=== PATIENT | male | born 1950 | race Caucasian/White ===

== ENCOUNTER 2018-12-18 07:48 | Outpatient (REF) | payer MEDICARE, OTHER, SELFPAY ==
[2018-12-18 22:26] LABS: Anion Gap 8.6 mmol/L (3-11); BUN 18 mg/dL (7-18); CO2 29.4 mmol/L (21.0-32.0); CREATININE 0.85 mg/dL (0.70-1.30); Calcium 8.9 mg/dL (8.5-10.1); Calculated LDL 146; Chloride 105 mmol/L (98-107); Cholesterol 215 mg/dL (50-200); Glucose 110 mg/dL (70-100); HDL Cholesterol 45 mg/dL (40-60); Potassium 5.1 mmol/L (3.5-5.1); Sodium 143 mmol/L (136-145); Triglyceride 121 mg/dL (30-150)
[2018-12-21 10:52] LABS: PSA, Screening 0.3 ng/ml (0-6.5)
== END 2018-12-18 08:08 ==
LOC: NCHCN 07:48
PROVIDERS: PCP Internal Medicine; Visit Provider Internal Medicine
DX: R03.0 Elevated blood-pressure reading, without diagnosis of hypertension (principal); R56.9 Unspecified convulsions; N39.9 Disorder of urinary system, unspecified; E66.9 Obesity, unspecified
CPT/HCPCS: 80048; 80061; 83721; 84153

== ENCOUNTER 2019-01-15 09:47 | Outpatient (REF) | payer MEDICARE, OTHER, SELFPAY ==
[2019-01-15 22:31] LABS: Anion Gap 8.7 mmol/L (3-11); BUN 17 mg/dL (7-18); CO2 26.3 mmol/L (21.0-32.0); CREATININE 0.71 mg/dL (0.70-1.30); Calcium 8.7 mg/dL (8.5-10.1); Calculated LDL 114 mg/dL; Chloride 105 mmol/L (98-107); Cholesterol 170 mg/dL (50-200); Glucose 102 mg/dL (70-100); HDL Cholesterol 37 mg/dL (40-60); Potassium 4.5 mmol/L (3.5-5.1); Sodium 140 mmol/L (136-145); Triglyceride 98 mg/dL (30-150)
== END 2019-01-15 10:07 ==
LOC: NCHCN 09:47
PROVIDERS: PCP Internal Medicine; Visit Provider Internal Medicine
DX: H16.009 Unspecified corneal ulcer, unspecified eye (principal); E66.9 Obesity, unspecified; R03.0 Elevated blood-pressure reading, without diagnosis of hypertension; N39.9 Disorder of urinary system, unspecified; R56.9 Unspecified convulsions
CPT/HCPCS: 80048; 80061; 83721

== ENCOUNTER 2019-11-11 09:13 | Outpatient (REF) | payer MEDICARE, OTHER, SELFPAY ==
[2019-11-11 20:21] LABS: PHENYTOIN (DILANTIN) 9.8 ug/mL (10.0-20.0)
[2019-11-11 20:32] LABS: TSH (W/Ref FT4) 1.91 uIU/mL (0.36-3.74)
[2019-11-11 20:49] LABS: Vitamin D 25 Total 39.8 ng/ml (30-100)
[2019-11-15 10:52] LABS: PSA, Diagnostic 0.3 ng/mL (0.0-6.5)
== END 2019-11-11 09:33 ==
LOC: NCHCN 09:13
PROVIDERS: PCP Internal Medicine; Visit Provider Internal Medicine
DX: E55.9 Vitamin D deficiency, unspecified (principal); C61 Malignant neoplasm of prostate; R56.9 Unspecified convulsions; R68.89 Other general symptoms and signs; Z51.81 Encounter for therapeutic drug level monitoring
CPT/HCPCS: 82306; 80185; 84153; 84443

== ENCOUNTER 2020-10-11 07:36 | Outpatient (REF) | payer MEDICARE, OTHER, SELFPAY ==
[2020-10-11 13:37] LABS: ALT 57 U/L (16-63); AST 28 U/L (15-37); Albumin 3.8 g/dL (3.4-5.0); Alkaline Phosphatase 64 U/L (46-116); Anion Gap 8.7 mmol/L (3-11); BUN 22 mg/dL (7-18); Bilirubin, Total 0.6 mg/dL (0.2-1.0); CO2 27.3 mmol/L (21.0-32.0); Calcium 9.2 mg/dL (8.5-10.1); Calculated LDL 101 mg/dL (<100); Chloride 102 mmol/L (98-107); Cholesterol 150 mg/dL (<200); Glucose 93 mg/dL (74-106); HDL Cholesterol 39 mg/dL (40-60); Potassium 4.7 mmol/L (3.5-5.1); Sodium 138 mmol/L (136-145); Total Protein 7.2 g/dL (6.4-8.2); Triglyceride 50 mg/dL (<150)
== END 2020-10-11 07:37 | disposition home or self-care (01) ==
LOC: NCHCN 07:36
PROVIDERS: PCP Internal Medicine; Visit Provider Internal Medicine
DX: I10 Essential (primary) hypertension (principal); Z13.220 Encounter for screening for lipoid disorders; Z86.79 Personal history of other diseases of the circulatory system; E66.9 Obesity, unspecified
CPT/HCPCS: 80053; 80061

== ENCOUNTER 2022-01-15 16:55 | Outpatient (REF) | payer MEDICARE, OTHER, SELFPAY ==
[2022-01-15 21:35] LABS: Anion Gap 8.7 mmol/L (3-11); BUN 27 mg/dL (7-18); CO2 26.3 mmol/L (21.0-32.0); CREATININE 1.1 mg/dL (0.70-1.30); Calcium 9.3 mg/dL (8.5-10.1); Chloride 102 mmol/L (98-107); Glucose 88 mg/dL (74-106); Potassium 4.6 mmol/L (3.5-5.1); Sodium 137 mmol/L (136-145)
== END 2022-01-15 16:56 | disposition home or self-care (01) ==
LOC: NCHCN 16:55
PROVIDERS: PCP Internal Medicine; Visit Provider Internal Medicine
DX: I10 Essential (primary) hypertension (principal)
CPT/HCPCS: 80048

== ENCOUNTER 2022-04-26 15:21 | Outpatient (REF) | payer MEDICARE, OTHER, SELFPAY ==
[2022-04-26 20:50] LABS: HGB 13.9 g/dL (13.5-17.5); MCH 29.8 pg (27.0-33.0); MCHC 33.1 % (32.0-36.0); MCV 90 fL (80-95); MPV 10.7 fL (8.0-11.0); Platelet Count 239 10^3/uL (130-400); RBC 4.66 10^6/uL (4.36-5.78); RDW 12.4 % (11.8-14.1); RDW-SD 40.8 fL; WBC 11.19 10^3/uL (4.4-10.8)
[2022-04-26 21:05] LABS: ALT 30 U/L (16-63); AST 21 U/L (15-37); Albumin 3.8 g/dL (3.4-5.0); Alkaline Phosphatase 78 U/L (46-116); BUN 33 mg/dL (7-18); Bilirubin, Total 0.4 mg/dL (0.2-1.0); CREATININE 1.3 mg/dL (0.70-1.30); Calcium 9.3 mg/dL (8.5-10.1); Chloride 103 mmol/L (98-107); Estimated GFR 58.01 (mL/min/1.73m2); Glucose 105 mg/dL (74-106); Potassium 4.9 mmol/L (3.5-5.1); Sodium 138 mmol/L (136-145); TSH (W/Ref FT4) 1.55 uIU/mL (0.36-3.74); Total Protein 7.2 g/dL (6.4-8.2)
== END 2022-04-26 15:22 | disposition home or self-care (01) ==
LOC: NCHCN 15:21
PROVIDERS: PCP Internal Medicine; Visit Provider Family Medicine
DX: R06.02 Shortness of breath (principal); R61 Generalized hyperhidrosis
CPT/HCPCS: 80053; 85027; 84443

== ENCOUNTER 2022-04-30 12:39 | Outpatient (REF) | payer MEDICARE, OTHER, SELFPAY ==
[2022-04-30 15:29] LABS: Anion Gap 6.1 mmol/L (3-11); BUN 29 mg/dL (7-18); CO2 27.9 mmol/L (21.0-32.0); CREATININE 1.1 mg/dL (0.70-1.30); Calcium 9.5 mg/dL (8.5-10.1); Chloride 103 mmol/L (98-107); Estimated GFR 70.88 (mL/min/1.73m2); Glucose 98 mg/dL (74-106); Sodium 137 mmol/L (136-145)
== END 2022-04-30 12:40 | disposition home or self-care (01) ==
LOC: NCHCN 12:39
PROVIDERS: PCP Internal Medicine; Visit Provider Family Medicine
DX: I10 Essential (primary) hypertension (principal); I48.91 Unspecified atrial fibrillation
CPT/HCPCS: 80048

== ENCOUNTER 2022-06-21 10:46 | Outpatient (REF) | payer MEDICARE, OTHER, SELFPAY ==
--- OUTSIDE RECORDS SUMMARY | 2022-06-21 10:51 | XMS_ITS | CCD ---
:1950 Author Care Team Providers Name Role Phone HIRAL, DEEPA Attending Physician Unavailable Vital Signs Unknown or Not Available. Allergies Allergy Code Allergy Type Reaction Status No Known Allergies 0 No known allergies Act colette Procedures Unknown or Not Available. History of Immunizations Unknown or Not Available. Problems Problem Code Start Date Resolved Date Status Seizure disorder [id number] Active Paroxysmal atrial fibrillation [id number] Active Results Unknown or Not Available. Active Medications Unknown or Not Available. Medications Administered During Visit Unknown or Not Available. 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 Discharge Instructions You were admitted to [facility] on 01/22/2021 07:47 with a principal diagnosis of Generalized idiopathic epil epsy and epileptic syndromes, not intractable, without status epilepticus You were discharged from [facility] on 01/22/2021 07:47 Should you have any questions prior to d ischarge, please contact a member of your healthcare team. If you have left the ho spital and have any questions, please contact your primary care physician. Chief Complaint and Reason For Visit Unknown or Not Available. Function Status Unknown or Not Available. Plan of Care Unknown or Not Available. Referral/Transition of Care Unknown or Not Available.
[2022-06-21 18:29] LABS: Anion Gap 6.2 mmol/L (3-11); BUN 21 mg/dL (7-18); CO2 28.8 mmol/L (21.0-32.0); Calcium 9.4 mg/dL (8.5-10.1); Chloride 102 mmol/L (98-107); Estimated GFR 79.47 (mL/min/1.73m2); Glucose 95 mg/dL (74-106); Potassium 5.3 mmol/L (3.5-5.1); Sodium 137 mmol/L (136-145)
== END 2022-06-21 10:47 | disposition home or self-care (01) ==
LOC: NCHCN 10:46
PROVIDERS: PCP Internal Medicine; Visit Provider Family Medicine
DX: I10 Essential (primary) hypertension (principal)
CPT/HCPCS: 80048

== ENCOUNTER 2022-11-12 09:53 | Outpatient (REF) | payer MEDICARE, OTHER, SELFPAY ==
[2022-11-12 15:59] LABS: ALT 39 U/L (16-63); AST 29 U/L (15-37); Albumin 3.5 g/dL (3.4-5.0); Alkaline Phosphatase 63 U/L (46-116); Anion Gap 8.7 mmol/L (3-11); BUN 19 mg/dL (7-18); Bilirubin, Total 0.6 mg/dL (0.2-1.0); CO2 26.3 mmol/L (21.0-32.0); CREATININE 1.1 mg/dL (0.70-1.30); Calcium 9.1 mg/dL (8.5-10.1); Calculated LDL 117 mg/dL (<100); Chloride 106 mmol/L (98-107); Cholesterol 177 mg/dL (<200); Estimated GFR 70.44 (mL/min/1.73m2); Glucose 99 mg/dL (74-106); HDL Cholesterol 36 mg/dL (40-60); Potassium 4.7 mmol/L (3.5-5.1); Sodium 141 mmol/L (136-145); Total Protein 7.2 g/dL (6.4-8.2); Triglyceride 121 mg/dL (<150)
[2022-11-12 22:48] LABS: PSA, Screening 0.3 ng/mL (<=6.5)
== END 2022-11-12 09:54 | disposition home or self-care (01) ==
LOC: NCHCN 09:53
PROVIDERS: PCP Internal Medicine; Visit Provider Family Medicine
DX: I48.0 Paroxysmal atrial fibrillation (principal); Z12.5 Encounter for screening for malignant neoplasm of prostate; I10 Essential (primary) hypertension
CPT/HCPCS: 80053; 80061; 84153

== ENCOUNTER 2023-08-13 13:55 | Outpatient (REF) | payer MEDICARE, OTHER, SELFPAY ==
[2023-08-13 16:29] LABS: ALT 48 U/L (16-63); AST 23 U/L (15-37); Albumin 3.8 g/dL (3.4-5.0); Alkaline Phosphatase 76 U/L (46-116); Anion Gap 10.2 mmol/L (3-11); BUN 10 mg/dL (7-18); Bilirubin, Total 0.9 mg/dL (0.2-1.0); CO2 27.8 mmol/L (21.0-32.0); Chloride 104 mmol/L (98-107); Estimated GFR 78.98 (mL/min/1.73m2); Glucose 113 mg/dL (74-106); Potassium 4.2 mmol/L (3.5-5.1); Sodium 142 mmol/L (136-145); Total Protein 7.5 g/dL (6.4-8.2)
[2023-08-15 11:58] LABS: Lamotrigine 2.4 mcg/mL (3.0-15.0)
== END 2023-08-13 13:56 | disposition home or self-care (01) ==
LOC: NCHCN 13:55
PROVIDERS: PCP Internal Medicine; Referring Provider Family Medicine; Visit Provider Family Medicine
DX: I10 Essential (primary) hypertension (principal); G40.909 Epilepsy, unspecified, not intractable, without status epilepticus; Z51.81 Encounter for therapeutic drug level monitoring; Z79.899 Other long term (current) drug therapy
CPT/HCPCS: 80053; 80175

== ENCOUNTER 2023-08-28 16:08 | Outpatient (REF) | payer MEDICARE, OTHER, SELFPAY ==
[2023-08-30 13:01] LABS: Lamotrigine 2.9 mcg/mL (3.0-15.0)
== END 2023-08-28 16:09 | disposition home or self-care (01) ==
LOC: NCHCN 16:08
PROVIDERS: PCP Internal Medicine; Referring Provider Family Medicine; Visit Provider Family Medicine
DX: G40.909 Epilepsy, unspecified, not intractable, without status epilepticus (principal)
CPT/HCPCS: 80175

== ENCOUNTER 2023-09-19 11:17 | Outpatient (REF) | payer MEDICARE, OTHER, SELFPAY ==
[2023-09-21 13:40] LABS: Lamotrigine 3.6 mcg/mL (3.0-15.0)
== END 2023-09-19 11:18 | disposition home or self-care (01) ==
LOC: NCHCN 11:17
PROVIDERS: PCP Internal Medicine; Visit Provider Family Medicine
DX: G40.909 Epilepsy, unspecified, not intractable, without status epilepticus (principal); Z51.81 Encounter for therapeutic drug level monitoring; Z79.899 Other long term (current) drug therapy
CPT/HCPCS: 80175

== ENCOUNTER 2023-10-28 14:47 | Outpatient (REF) | payer MEDICARE, OTHER, SELFPAY ==
[2023-10-29 18:22] LABS: PSA, Screening 0.4 ng/mL (<=6.5)
== END 2023-10-28 14:48 | disposition home or self-care (01) ==
LOC: NCHCN 14:47
PROVIDERS: PCP Internal Medicine; Visit Provider Family Medicine
DX: Z85.46 Personal history of malignant neoplasm of prostate (principal)
CPT/HCPCS: 84153

== ENCOUNTER 2023-12-03 12:20 | Outpatient (REF) | payer MEDICARE, OTHER, SELFPAY ==
[2023-12-03 14:42] LABS: Abs Immature Grans 0.02 10^3/uL (0.0-0.06); Absolute Basophil Count 0.03 10^3/uL (0.0-0.2); Absolute Lymphocyte Count 1.79 10^3/uL (1.2-3.4); Absolute Monocyte Count 0.72 10^3/uL (0.1-0.8); Basophils % 0.3 %; Eosinophils % 1.1 %; HCT 44.3 % (40.0-50.0); HGB 15.1 g/dL (13.5-17.5); Immature Grans % 0.2 %; Lymphocytes % 20.2 %; MCHC 34.1 % (32.0-36.0); MCV 91 fL (80-95); MPV 10.5 fL (8.0-11.0); Monocytes % 8.1 %; Neutrophils % 70.1 %; Platelet Count 211 10^3/uL (130-400); RBC 4.87 10^6/uL (4.36-5.78); RDW 11.9 % (11.8-14.1); RDW-SD 39.8 fL; WBC 8.86 10^3/uL (4.4-10.8)
[2023-12-03 15:26] LABS: ALT 66 U/L (16-63); AST 34 U/L (15-37); Albumin 3.8 g/dL (3.4-5.0); Alkaline Phosphatase 83 U/L (46-116); Anion Gap 7.9 mmol/L (3-11); BUN 19 mg/dL (7-18); CO2 27.1 mmol/L (21.0-32.0); CREATININE 1.3 mg/dL (0.70-1.30); Chloride 108 mmol/L (98-107); Estimated GFR 57.29 (mL/min/1.73m2); Glucose 102 mg/dL (74-106); Potassium 4.1 mmol/L (3.5-5.1); Sodium 143 mmol/L (136-145); TSH (W/Ref FT4) 1.23 uIU/mL (0.36-3.74); Total Protein 7.3 g/dL (6.4-8.2)
[2023-12-03 15:27] LABS: C-Reactive Protein < 0.50 mg/dL (<or=0.5)
[2023-12-03 15:51] LABS: Calcium 9.6 mg/dL (8.5-10.1)
[2023-12-03 21:58] LABS: C Diff PCR Positive (Negative)
== END 2023-12-03 12:21 | disposition home or self-care (01) ==
LOC: NCHCN 12:20
PROVIDERS: PCP Internal Medicine; Visit Provider Family Medicine
DX: R19.7 Diarrhea, unspecified (principal)
CPT/HCPCS: 80053; 87493; 84443; 85025; 86140

== ENCOUNTER 2025-03-08 18:19 | Outpatient (REF) | payer MEDICARE, OTHER, SELFPAY ==
[2025-03-08 21:04] LABS: HCT 42.1 % (40.0-50.0); HGB 14.3 g/dL (13.5-17.5); MCH 30.8 pg (27.0-33.0); MCHC 34.0 % (32.0-36.0); MCV 91 fL (80-95); MPV 10.5 fL (8.0-11.0); Platelet Count 214 10^3/uL (130-400); RBC 4.65 10^6/uL (4.36-5.78); RDW 12.8 % (11.8-14.1); RDW-SD 41.7 fL; WBC 9.93 10^3/uL (4.4-10.8)
[2025-03-08 21:10] LABS: RBC Negative HPF (0-2); WBC Negative HPF (0-5)
[2025-03-08 21:11] LABS: C & S Indicated? No
[2025-03-08 21:23] LABS: ALT 27 U/L (16-63); AST 25 U/L (15-37); Albumin 3.8 g/dL (3.4-5.0); Alkaline Phosphatase 88 U/L (46-116); Anion Gap 4.1 mmol/L (3-11); BUN 18 mg/dL (7-18); Bilirubin, Total 0.5 mg/dL (0.2-1.0); CO2 30.9 mmol/L (21.0-32.0); Calcium 9.0 mg/dL (8.5-10.1); Chloride 105 mmol/L (98-107); Estimated GFR 78.00 (mL/min/1.73m2); Glucose 94 mg/dL (74-106); Potassium 4.7 mmol/L (3.5-5.1); Sodium 140 mmol/L (136-145); TSH (W/Ref FT4) 1.73 uIU/mL (0.36-3.74); Total Protein 7.2 g/dL (6.4-8.2)
== END 2025-03-08 18:20 | disposition home or self-care (01) ==
LOC: NCHCN 18:19
PROVIDERS: PCP Internal Medicine; Visit Provider Family Medicine
DX: R31.9 Hematuria, unspecified (principal); I10 Essential (primary) hypertension
CPT/HCPCS: 80053; 85027; 81015; 84443

== ENCOUNTER 2025-05-31 19:46 | Outpatient (REF) | payer MEDICARE, OTHER, SELFPAY ==
[2025-05-31 21:35] LABS: Microalb ug/mg Crea 2.2 ug/mg Cr
== END 2025-05-31 19:47 | disposition home or self-care (01) ==
LOC: NCHCN 19:46
PROVIDERS: PCP Internal Medicine; Visit Provider Family Medicine
DX: I10 Essential (primary) hypertension (principal)
CPT/HCPCS: 82043; 82570